=== PATIENT | female | born 2000 ===

== ENCOUNTER 2022-02-24 09:17 | Emergency (ER) | payer MEDICAID ==
[~2022-02-24] VITALS: Ht 152.4 cm; Wt 66.8 kg
[2022-02-24 11:04] LABS: MONOSCREEN NEGATIVE
[2022-02-24 11:18] VITALS: BP 102/67; PULSE 97; TEMP 98.7
== END 2022-02-24 11:18 | disposition home or self-care (01) ==
LOC: COL.ER 09:17
PROVIDERS: Emergency Medicine
DX: J03.90 Acute tonsillitis, unspecified (principal)